=== PATIENT | female | born 1970 | race Caucasian/White ===

== ENCOUNTER → 2020-12-14 | Outpatient (CLI) | payer OTHER ==
[~2020-12-14] MED LIST: ALBU2.5V NEB; ALBU8.5H8 INH; ATOR20TA37 PO; CETI-158 PO; FLUT1DIS3 INH; HYDR25TA6 PO; LOSA50TA14 PO
[2020-12-14 09:35] LABS: BASOPHILS % (AUTO) 1 % (0-1); EOSINOPHILS % (AUTO) 6 % (1-7); LYMPHOCYTES % (AUTO) 39 % (22-44); MEAN CORPUSCULAR HEMOGLOBIN 28.7 pg (27.0-34.8); MEAN CORPUSCULAR HGB CONC 33.5 g/dL (32.4-35.8); MEAN PLATELET VOLUME 8.7 fL (7.4-10.4); MONOCYTES % (AUTO) 7 % (2-9); NEUTROPHILS % (AUTO) 47 % (42-75); PLATELET COUNT 204 x10^3/uL (130-400); RED BLOOD COUNT 5.28 x10^6/uL (3.82-5.3); RED CELL DISTRIBUTION WIDTH 17.4 % (9.6-15.2)
[2020-12-14 09:45] LABS: ANION GAP 10 mmol/L (5-15); CALCIUM 9.3 mg/dL (8.5-10.1); CHLORIDE 105 mmol/L (98-107)
[2020-12-14 09:47] LABS: MICROSCOPIC AUTO
[2020-12-14 09:51] LABS: ALANINE AMINOTRANSFERASE 57 U/L (12-78); ALKALINE PHOSPHATASE 64 U/L (45-117); BILIRUBIN,TOTAL 0.2 mg/dL (0.2-1.0); CREATININE 0.89 mg/dL (0.55-1.02)
[2020-12-14 09:57] LABS: MD SCAN
== END | disposition home or self-care (01) ==
LOC: STAR 07:52
PROVIDERS: ATTEND Student in an Organized Health Care Education/Training Program
DX: Z01.812 Encounter for preprocedural laboratory examination (principal); N93.9 Abnormal uterine and vaginal bleeding, unspecified; Z20.822 Contact with and (suspected) exposure to COVID-19
CPT/HCPCS: 36415; 80053; 81001; 84702; 85025; 87086; U0003; U0005

== ENCOUNTER 2020-12-20 13:02 | Day surgery (SDC) | payer OTHER ==
[~2020-12-20] VITALS: Ht 157.5 cm; Wt 66.5 kg
[2020-12-20] MEDS ORDERED: CHLORHEXIDINE 15 ML UDC ONE (13:39)
[2020-12-20] MEDS ORDERED: CHLORHEXIDINE 15 ML UDC PO ONE (14:00)
[2020-12-20] MEDS ORDERED: LACTATED RINGERS 1,000 ML IV SCH (14:00)
[2020-12-20 14:11] VITALS: BP 162/102
[2020-12-20] MEDS ORDERED: PROPOFOL 50 ML ONE (14:24)
[2020-12-20] MEDS ORDERED: MIDAZOLAM 1 MG/ML, 2ML ONE (14:25)
[2020-12-20] MEDS ORDERED: FENTANYL PF 250 MCG/5ML ONE (14:25)
[2020-12-20] MEDS ORDERED: OXYC1TAB14 PO (15:05)
[2020-12-20] MEDS ORDERED: IBUP-1222 PO (15:05)
[2020-12-20] MEDS ORDERED: SUCCINYLCHOLINE 20 MG/ML, 10ML ONE (15:06)
[2020-12-20] MEDS ORDERED: ROCURONIUM 10 MG/ML,10ML ONE (15:06)
[2020-12-20] MEDS ORDERED: DEXAMETHASONE 4 MG/ML, 1ML ONE (15:06)
[2020-12-20] MEDS ORDERED: CEFAZOLIN 1,000 MG ONE (15:06)
[2020-12-20] MEDS ORDERED: ONDANSETRON 2MG/ML, 2ML ONE (15:06)
[2020-12-20] MEDS ORDERED: hydrALAzine 20 MG/ML, 1ML ONE (15:42)
[2020-12-20] MEDS ORDERED: SUGAMMADEX 200 MG/2 ML IVPush ONE ×2 (15:44)
[2020-12-20] MEDS ORDERED: BUPIVACAINE/PF 0.25% INFIL ONE (15:52)
[2020-12-20] MEDS ORDERED: MEPERIDINE/PF 25MG/ML,1ML ONE (16:47)
[2020-12-20] MEDS ORDERED: PROMETHAZINE 12.5 MG SUPP PR PRN (17:00)
[2020-12-20] MEDS ORDERED: FENTANYL PF 100 MCG/2ML IV PRN (17:00)
[2020-12-20] MEDS ORDERED: DIAZEPAM 5 MG/ML, 2ML IVPush PRN (17:00)
[2020-12-20] MEDS ORDERED: EPHEDRINE 50 MG/ML, 1ML IVPush PRN (17:00)
[2020-12-20] MEDS ORDERED: DIPHENHYDRAMINE 50 MG/ML, 1ML IVPush PRN ×2 (17:00)
[2020-12-20] MEDS ORDERED: MEPERIDINE/PF 25MG/0.5ML IVPush PRN (17:00)
[2020-12-20] MEDS ORDERED: PROMETHAZINE 25 MG/ML, 1ML IVPush PRN (17:00)
[2020-12-20] MEDS ORDERED: ACETAMINOPHEN 325 MG TABLET PO PRN (17:00)
[2020-12-20] MEDS ORDERED: MIDAZOLAM 1 MG/ML, 2ML IV PRN (17:00)
[2020-12-20] MEDS ORDERED: HYDROmorphone 1 MG/ML, 1ML INJ IVPush PRN (17:00)
[2020-12-20] MEDS ORDERED: LABETALOL 5MG/ML, 20ML IV PRN (17:00)
[2020-12-20] MEDS ORDERED: OXYcodone 5 MG/5 ML ORAL.SOL UDC PO PRN (17:00)
[2020-12-20] MEDS ORDERED: ALBUTEROL SULFATE 2.5 MG/3 ML NPPB PRN (17:00)
[2020-12-20] MEDS ORDERED: hydrALAzine 20 MG/ML, 1ML IV PRN (17:00)
[2020-12-20] MEDS ORDERED: ONDANSETRON 2MG/ML, 2ML IVPush PRN (17:00)
[2020-12-20] MEDS ORDERED: FENTANYL PF 100 MCG/2ML ONE (17:01)
[2020-12-20] MEDS ORDERED: OXYcodone 5 MG/5 ML ORAL.SOL UDC ONE (17:02)
== END 2020-12-20 20:55 | disposition home or self-care (01) ==
LOC: OUT 13:02
PROVIDERS: ATTEND Student in an Organized Health Care Education/Training Program
DX: Z30.2 Encounter for sterilization (principal); N93.9 Abnormal uterine and vaginal bleeding, unspecified; I10 Essential (primary) hypertension; E78.5 Hyperlipidemia, unspecified; J45.909 Unspecified asthma, uncomplicated; Z79.899 Other long term (current) drug therapy; Z88.0 Allergy status to penicillin; Z88.8 Allergy status to other drugs, medicaments and biological substances
CPT/HCPCS: 36415; 58558; 58670; 81025; 86850; 86900; 88305; J0171; J0330; J0360; J0690; J1100; J1170; J2175; J2250; J2405; J2704; J3010; J7120

== ENCOUNTER 2021-01-17 13:52 | Day surgery (SDC) | payer OTHER ==
[2021-01-14 14:41] LABS: MICROSCOPIC AUTO
[2021-01-14 14:41] LABS: BASOPHILS % (AUTO) 1 % (0-1); EOSINOPHILS % (AUTO) 4 % (1-7); LYMPHOCYTES % (AUTO) 35 % (22-44); MEAN CORPUSCULAR HEMOGLOBIN 28.8 pg (27.0-34.8); MEAN CORPUSCULAR HGB CONC 33.2 g/dL (32.4-35.8); MEAN PLATELET VOLUME 8.4 fL (7.4-10.4); MONOCYTES % (AUTO) 7 % (2-9); NEUTROPHILS % (AUTO) 53 % (42-75); PLATELET COUNT 223 x10^3/uL (130-400); RED BLOOD COUNT 4.52 x10^6/uL (3.82-5.3); RED CELL DISTRIBUTION WIDTH 13.9 % (9.6-15.2)
[2021-01-14 14:50] LABS: ALANINE AMINOTRANSFERASE 37 U/L (12-78); ALBUMIN 3.7 g/dL (3.4-5.0); ANION GAP 7 mmol/L (5-15); CALCIUM 8.7 mg/dL (8.5-10.1); CHLORIDE 106 mmol/L (98-107); CREATININE 0.72 mg/dL (0.55-1.02)
[2021-01-14 14:52] LABS: ALKALINE PHOSPHATASE 45 U/L (45-117); BILIRUBIN,TOTAL 0.4 mg/dL (0.2-1.0); TOTAL PROTEIN 7.2 g/dL (6.4-8.2)
[~2021-01-17] VITALS: Ht 157.5 cm; Wt 67.1 kg
[~2021-01-17 13:52] MED LIST changes: +ACETAMINOPHEN 325 MG TABLET PO PRN; +EPHEDRINE 50 MG/ML, 1ML IVPush PRN; +HYDROCHLOROTH12.5 MG PO; +HYDROmorphone 1 MG/ML, 1ML INJ IVPush PRN; +IBUP-1222 PO; +ONDANSETRON 2MG/ML, 2ML IVPush PRN; +OXYC1TAB14 PO; +OXYcodone 5 MG/5 ML ORAL.SOL UDC PO PRN; +PROMETHAZINE 25 MG/ML, 1ML IVPush PRN; +hydrALAzine 20 MG/ML, 1ML IV PRN
[2021-01-17 14:39] VITALS: BP 174/109
[2021-01-17 14:53] LABS: HCG UR SG 1.015 (1.003-1.030)
[2021-01-17] MEDS ORDERED: LACTATED RINGERS 1,000 ML IV SCH (15:00)
[2021-01-17] MEDS ORDERED: CHLORHEXIDINE 15 ML UDC PO ONE (15:00)
[2021-01-17] MEDS ORDERED: FENTANYL PF 100 MCG/2ML ONE ×2 (15:12→16:39)
[2021-01-17] MEDS ORDERED: MIDAZOLAM 1 MG/ML, 2ML ONE (15:12)
[2021-01-17] MEDS ORDERED: ONDANSETRON 2MG/ML, 2ML ONE ×2 (15:16→16:38)
[2021-01-17] MEDS ORDERED: DEXAMETHASONE 4 MG/ML, 1ML ONE (15:16)
[2021-01-17] MEDS ORDERED: PROPOFOL 10 MG/ML, 20ML ONE (15:16)
[2021-01-17] MEDS ORDERED: KETOROLAC 30 MG/1 ML ONE ×2 (15:16)
[2021-01-17] MEDS ORDERED: CEFAZOLIN 1,000 MG ONE (15:16)
[2021-01-17] MEDS ORDERED: LIDOCAINE-MPF 2% ,5ML ONE (15:16)
[2021-01-17 15:29] LABS: ANION GAP 6 mmol/L (5-15); CALCIUM 8.3 mg/dL (8.5-10.1); CHLORIDE 110 mmol/L (98-107); CREATININE 0.64 mg/dL (0.55-1.02)
[2021-01-17] MEDS ORDERED: BUPIVACAINE/PF 0.25% ONE (15:30)
[2021-01-17] MEDS ORDERED: VASOPRESSIN 20 UNIT/ML, 1ML ONE (15:54)
[2021-01-17] MEDS: FENTANYL PF 100 MCG/2ML IV PRN ×2 (16:43→16:53)
[2021-01-17] MEDS ORDERED: LABETALOL 5MG/ML, 20ML ONE (16:53)
[2021-01-17] MEDS: LABETALOL 5MG/ML, 20ML IV PRN ×2 (16:55→18:16)
[2021-01-17] MEDS ORDERED: HYDROcodone/APAP 7.5-325MG/15ML UDC ONE (17:15)
[2021-01-17] MEDS ORDERED: HYDROcodone/APAP 7.5-325MG/15ML UDC PO PRN (17:30)
== END 2021-01-17 19:10 | disposition home or self-care (01) ==
LOC: OR 13:52 → OUT 19:10
PROVIDERS: ATTEND Student in an Organized Health Care Education/Training Program
DX: N93.9 Abnormal uterine and vaginal bleeding, unspecified (principal); I10 Essential (primary) hypertension; E78.5 Hyperlipidemia, unspecified; J45.909 Unspecified asthma, uncomplicated; Z20.822 Contact with and (suspected) exposure to COVID-19; Z79.899 Other long term (current) drug therapy; Z88.0 Allergy status to penicillin; Z88.8 Allergy status to other drugs, medicaments and biological substances
CPT/HCPCS: 36415; 58563; 80048; 80053; 81001; 81025; 85025; 86850; 86900; 88305; J0690; J1100; J1885; J2250; J2405; J2704; J3010; J7120; U0003; U0005